=== PATIENT | female | born 1975 | race Caucasian/White ===

== ENCOUNTER → 2024-07-03 11:11 | Outpatient (REF) | payer BC, SELFPAY | LOC: WDC 11:11 | PROVIDERS: ATTENDING PHYSICIAN Physician Assistant Medical | DX: Z12.31 Encounter for screening mammogram for malignant neoplasm of breast (principal) | CPT/HCPCS: 77063; 77067 ==

== ENCOUNTER → 2024-07-11 08:33 | Outpatient (REF) | payer BC, SELFPAY | LOC: WDC 08:33 | PROVIDERS: ATTENDING PHYSICIAN Physician Assistant Medical | DX: R92.8 Other abnormal and inconclusive findings on diagnostic imaging of breast (principal) | CPT/HCPCS: 76642 ==

== ENCOUNTER → 2024-07-15 09:55 | Outpatient (REF) | payer BC, SELFPAY ==
--- NOTE | 2024-07-15 13:44 | OID.BR.INTR ---
OID Breast Navigator - Initial
- -
Date of Contact: 07/15/24
Met with patient. Patient given written information on navigator services available at [facility]. Will follow up as needed per protocol.
== END ==
LOC: WDC 09:55
PROVIDERS: ATTENDING PHYSICIAN Physician Assistant Medical
DX: N63.23 Unspecified lump in the left breast, lower outer quadrant (principal)
CPT/HCPCS: 88305; 19083; 88341; 88360; A4648

== ENCOUNTER → 2024-07-24 12:45 | Outpatient (REF) | payer BC, SELFPAY | LOC: WDC 12:45 | PROVIDERS: ATTENDING PHYSICIAN Surgery; FAMILY PHYSICIAN Physician Assistant Medical; REFERRING PHYSICIAN Student in an Organized Health Care Education/Training Program | DX: R92.30 Dense breasts, unspecified (principal) | CPT/HCPCS: 76641 ==

== ENCOUNTER → 2024-08-07 07:47 | Outpatient (REF) | payer BC, SELFPAY | LOC: WDC 07:47 | PROVIDERS: ATTENDING PHYSICIAN Student in an Organized Health Care Education/Training Program; FAMILY PHYSICIAN Physician Assistant Medical | DX: N63.41 Unspecified lump in right breast, subareolar (principal) | CPT/HCPCS: 88305; 19083; A4648 ==

== ENCOUNTER → 2024-10-25 08:24 | Outpatient (REF) | payer BC, SELFPAY | LOC: RCS 08:24 | PROVIDERS: ATTENDING PHYSICIAN Internal Medicine Hematology & Oncology; FAMILY PHYSICIAN Physician Assistant Medical | DX: C50.512 Malignant neoplasm of lower-outer quadrant of left female breast (principal); Z17.0 Estrogen receptor positive status [ER+] | CPT/HCPCS: 93306; 93356 ==

== ENCOUNTER 2024-11-11 12:54 | Outpatient (RCR) | payer BC, SELFPAY | END 2024-11-11 23:59 | disposition home or self-care (01) | LOC: RPT 12:54 | PROVIDERS: ATTENDING PHYSICIAN Radiology Radiation Oncology; FAMILY PHYSICIAN Internal Medicine | DX: C50.412 Malignant neoplasm of upper-outer quadrant of left female breast (principal); R53.0 Neoplastic (malignant) related fatigue; L90.5 Scar conditions and fibrosis of skin; Z17.0 Estrogen receptor positive status [ER+]; Z73.6 Limitation of activities due to disability; M62.81 Muscle weakness (generalized) | CPT/HCPCS: 97110; 97140; 97163; 97530 ==

== ENCOUNTER → 2024-12-04 15:14 | Outpatient (REF) | payer BC, SELFPAY | LOC: RCS 15:14 | PROVIDERS: ATTENDING PHYSICIAN Internal Medicine; FAMILY PHYSICIAN Physician Assistant Medical | DX: C50.919 Malignant neoplasm of unspecified site of unspecified female breast (principal); I10 Essential (primary) hypertension; T45.1X5A Adverse effect of antineoplastic and immunosuppressive drugs, initial encounter; R00.0 Tachycardia, unspecified | CPT/HCPCS: 93017 ==

== ENCOUNTER → 2024-12-10 08:23 | Outpatient (REF) | payer BC, SELFPAY | LOC: HWRCS 08:23 | PROVIDERS: ATTENDING PHYSICIAN Student in an Organized Health Care Education/Training Program; FAMILY PHYSICIAN Physician Assistant Medical | DX: I10 Essential (primary) hypertension (principal); R00.0 Tachycardia, unspecified; R07.89 Other chest pain; R94.39 Abnormal result of other cardiovascular function study | CPT/HCPCS: 78452; 93017; A9500 ==

== ENCOUNTER 2024-12-16 08:58 | Outpatient (RCR) | payer BC, SELFPAY | END 2024-12-16 23:59 | disposition home or self-care (01) | LOC: RPT 08:58 | PROVIDERS: ATTENDING PHYSICIAN Radiology Radiation Oncology; FAMILY PHYSICIAN Internal Medicine | DX: C50.412 Malignant neoplasm of upper-outer quadrant of left female breast (principal); R53.0 Neoplastic (malignant) related fatigue; L90.5 Scar conditions and fibrosis of skin; Z17.0 Estrogen receptor positive status [ER+]; Z73.6 Limitation of activities due to disability; M62.81 Muscle weakness (generalized) | CPT/HCPCS: 97110; 97140; 97530 ==

== ENCOUNTER 2025-01-14 18:56 | Outpatient (RCR) | payer BC, SELFPAY | END 2025-01-14 23:59 | disposition home or self-care (01) | LOC: RPT 18:56 | PROVIDERS: ATTENDING PHYSICIAN Radiology Radiation Oncology; FAMILY PHYSICIAN Internal Medicine | DX: C50.412 Malignant neoplasm of upper-outer quadrant of left female breast (principal); R53.0 Neoplastic (malignant) related fatigue; L90.5 Scar conditions and fibrosis of skin; Z17.0 Estrogen receptor positive status [ER+]; Z73.6 Limitation of activities due to disability; M62.81 Muscle weakness (generalized) | CPT/HCPCS: 97110; 97140; 97164; 97530 ==

== ENCOUNTER 2025-01-31 09:15 | Emergency (ER) | payer BC, SELFPAY ==
[2025-01-31 09:19] VITALS: BP 173/101
[2025-01-31 09:41] VITALS: BMI 25.6
--- NOTE | 2025-01-31 09:43 | ED.GENMED ---
History of Present Illness
General
Chief Complaint: Skin Problem
Source: patient
Exam Limitations: none
Time Seen by Provider: 01/31/25 09:25
Nursing documentation reviewed up to this point in time: agreed with
History of Present Illness
History of Present Illness:
see MDM
Past History
Past History
ED Past Medical History: Cancer (breast to lymph nodes)
ED Past Surgical History: Gynecological
Review of Systems
Review of Systems
Allergies reviewed?: Yes
All Other Systems: Not applicable
Phy Exam
Physical Exam
Physical Exam:
GENERAL: Alert , in no apparent distress, comfortable at rest
HEAD: NCAT
CV: 2+ DP PULSES B/L
NEUROLOGICAL: Alert and oriented, no focal neuro deficits, , 5/5 strength, sensation intact,
SKIN: Warm and dry,
MUSCULOSKELETAL: fluid filled blister in between right 4th/5th toes (on 4th toe); leaking clearish fluid; tender
slight swelling of the entire 4th toe
faint erythema R distal 4th MTP joint regoin (very subtle)
normla pulse
scaly skin to b/l plantar feet
PSYCH: Normal and appropriate interaction.
Course
Orders/Labs/Results
Orders:
Orders
01/31/25 10:46
Wound Culture [Wound/Abscess/Other Culture] Urgent
DAMARI Source: Toe
Specimen Description:
Date Specimen was Collected: 01/31/25
Time Specimen was Collected: 10:43
Vital Signs
Initial and Last Documented VS:
Initial Vital Signs
Pulse Resp BP Pulse Ox
95 16 173/101 98
01/31/25 09:19 01/31/25 09:19 01/31/25 09:19 01/31/25 09:19
Last Documented Vital Signs
Temp Pulse Resp BP Pulse Ox
36.8 C 80 16 137/83 100
01/31/25 09:40 01/31/25 10:46 01/31/25 09:19 01/31/25 10:46 01/31/25 10:46
Procedures
Incision/Drainage/Joint Aspiration
Right Lateral Toe:
Anethesia: ethyl chloride
Preparation: cleaned with Betadine
Type of procedure: incise
Nature of site: other (blister)
Description of abscess: less than 3cm
Loculations broken up: No
How much fluid was obtained?: small amount
Fluid description: clear
Treatment: left open for drainage
MDM/Problems Addressed
MDM/Problems Addressed:
Note:
CHIEF COMPLAINT(S)
Foot blisters with swelling and redness.
HISTORY OF PRESENT ILLNESS
The patient is a 49-year-old female receiving chemotherapy for breast cancer, currently presenting with a foot issue characterized by intermittent episodes of itching, blistering, and swelling at the site. The patient describes the condition as
recurrent over the past few years, with blisters that arise after scratching itchy areas. She reports that after using a sock to scratch, it irritated the skin leading to blister formation. Accompanying symptoms include redness and swelling of the
foot, without any reported fever or systemic symptoms. The patients chemotherapy regimen includes Taxol, with previous treatments consisting of another agent she refers to as the '[place],' identified as Doxorubicin. She also mentions her nails
becoming dry and her feet experiencing significant dryness since starting chemotherapy. The patient has used Aquaphor in the past for dryness and a prescribed steroid cream, which she applied sparingly.
ADDITIONAL HISTORY OBTAINED FROM SOURCES OTHER THAN THE PATIENT
According to the patient, her spouse initially suggested the possibility of athlete�s foot, a notion the patient disagrees with due to pain and burning sensations that accompany friction blisters from previous experiences.
EXTERNAL RECORDS REVIEWED
No external records have been reviewed at the moment. However, the plan includes discussing the case with faraz
and potentially taking photos for further evaluation.
CHRONIC MEDICAL CONDITIONS SIGNIFICANTLY AFFECTING CARE
The patient reports a history of breast cancer, hypertension, thyroid dysfunction, and she is currently undergoing chemotherapy.
SOCIAL DETERMINANTS AFFECTING HEALTH
The patient mentions previous instances where foot blisters were exacerbated by long walking tours and wearing inappropriate footwear. She also indicates some concerns about managing the dryness of her skin due to chemotherapy and using various
creams such as Aquaphor.
REVIEW OF SYSTEMS
- Skin: Recurrent foot blisters, redness, swelling, dryness.
- Musculoskeletal: Foot discomfort.
- Constitutional: No fever or chills reported.
- Extremities: Pain and itching in the affected foot area.
PHYSICAL EXAM
- Dermatological: The affected foot appears MINIMALL swollen with faint pink skin changes on dosral aspect around 4th MTP joint ; large blister approx 3 cm x 2 cm on the lateral 4th toe in betewen 4th and 5th toes; clear fluid underneath, draining
with expression
slightly tender palpation of the toe
Nursing notes reviewed and vital signs reviewed.
PROBLEM LIST
Acute:
- Foot blister with possible infection.
- Swelling and redness of the foot.
Chronic:
- Breast cancer.
- Hypertension.
- Thyroid dysfunction.
PLAN
1. Consider discussing possible fluid aspiration from the blister for culture to ascertain if bacterial infection is present.
2. Evaluate the appropriateness of antibiotic treatment due to the patient�s immunocompromised status from chemotherapy.
DIFFERENTIAL DIAGNOSIS
The Differential Diagnosis includes, in no particular order and is not limited to:
1. Dyshidrotic eczema
2. Bacterial infection
3. Fungal infection (such as athletes foot)
4. Friction blister
5. Contact dermatitis
6. Chemotherapy-induced rash
7. Autoimmune skin condition
8. Drug reaction
9. Impetigo
10. Cellulitis
i opened the blister with a 11 blade whlie using the pain ease spray and pt toelrate well
clear fluid drained
cultured
empiric abx doxy
return precautions
*Critical Care Note
Total Time (30-74mins, 75-104mins- exclusive of procedures): Not Applicable
ED Attending Note
-
Portions of this chart may have been created with voice recognition software.� Occasional wrong word or��sound alike� substitutions may have occurred due to the inherent limitations of voice recognition software.
Discharge Plan
Departure
Patient Disposition: Home (Routine Discharge)
Date of Disposition: 01/31/25
Time of Disposition: 10:35
Patient with high blood pressure during this ER visit?: Yes
Condition: Fair
Covid-19: Not Applicable
Discharge Problem:
Blister, Hypertension
Instructions: Wound Care (DC), BLOOD PRESSURE
Prescriptions:
New
doxycycline hyclate 100 mg capsule
100 mg PO BID Qty: 14 0RF
No Action
Vitamins
DHA
SYNTHROID
137 mcg PO
Referrals:
Chelsea Tam PA [Family Provider, Family Practice]
Activity Restrictions/Additional Instructions:
I opened your blister and drained the fluid which looked clear and not infected. We are going to empirically cover you with antibiotics with doxycycline twice a day. You can speak with your oncologist to make sure this does not interact with your
medications. Elevate your foot and stay off of it today if you can. Return for worsening redness, swelling, pain, fever or any concerns
Interventions
Interventions:
*Risk Screen - Suicide Last Done: 01/31/25 09:19
*General Assessment Last Done: 01/31/25 09:39
*Neglect/Abuse Screening Last Done: 01/31/25 09:19
*ED- Fall Risk Assessment Last Done: 01/31/25 09:39
*ED COVID-19 Vaccine History Last Done: 01/31/25 09:39
*Nursing Disposition Last Done: 01/31/25 11:04
ED-Skin Assessment Last Done: 01/31/25 09:50
Discharge Date and Time
Discharge Date/Time: 01/31/25 11:00
Print Language: LATVIAN
[2025-01-31 09:45] VITALS: BP 147/84
[2025-01-31 10:46] VITALS: BP 137/83
== END 2025-01-31 11:00 | disposition home or self-care (01) ==
LOC: EMR 09:15
PROVIDERS: EMERGENCY PHYSICIAN Emergency Medicine; FAMILY PHYSICIAN Physician Assistant Medical
DX: S90.424A Blister (nonthermal), right lesser toe(s), initial encounter (principal); X58.XXXA Exposure to other specified factors, initial encounter; I10 Essential (primary) hypertension; Z79.899 Other long term (current) drug therapy; D84.821 Immunodeficiency due to drugs
CPT/HCPCS: 99283; 10140; 87070; 87205

== ENCOUNTER 2025-02-14 14:07 | Outpatient (RCR) | payer BC, SELFPAY | END 2025-02-14 23:59 | disposition home or self-care (01) | LOC: RPT 14:07 | PROVIDERS: ATTENDING PHYSICIAN Radiology Radiation Oncology; FAMILY PHYSICIAN Internal Medicine | DX: C50.412 Malignant neoplasm of upper-outer quadrant of left female breast (principal); R53.0 Neoplastic (malignant) related fatigue; L90.5 Scar conditions and fibrosis of skin; Z17.0 Estrogen receptor positive status [ER+]; Z73.6 Limitation of activities due to disability; M62.81 Muscle weakness (generalized) | CPT/HCPCS: 97110; 97530 ==

== ENCOUNTER 2025-03-14 15:00 | Outpatient (RCR) | payer BC, SELFPAY | END 2025-03-14 23:59 | disposition home or self-care (01) | LOC: RPT 15:00 | PROVIDERS: ATTENDING PHYSICIAN Radiology Radiation Oncology; FAMILY PHYSICIAN Internal Medicine | DX: C50.412 Malignant neoplasm of upper-outer quadrant of left female breast (principal); R53.0 Neoplastic (malignant) related fatigue; L90.5 Scar conditions and fibrosis of skin; Z17.0 Estrogen receptor positive status [ER+]; Z73.6 Limitation of activities due to disability; M62.81 Muscle weakness (generalized) | CPT/HCPCS: 97110; 97530 ==

== ENCOUNTER → 2025-03-31 08:56 | Outpatient (REF) | payer BC, SELFPAY | LOC: RCS 08:56 | PROVIDERS: ATTENDING PHYSICIAN Internal Medicine; FAMILY PHYSICIAN Physician Assistant Medical | DX: C50.919 Malignant neoplasm of unspecified site of unspecified female breast (principal); I10 Essential (primary) hypertension; T45.1X5A Adverse effect of antineoplastic and immunosuppressive drugs, initial encounter | CPT/HCPCS: 93306; 93356 ==

== ENCOUNTER → 2025-04-08 10:13 | Outpatient (REF) | payer BC, SELFPAY ==
[2025-04-08 11:41] LABS: TSH < 0.02 uIU/ml (0.47-4.68)
== END ==
LOC: REG 10:13
PROVIDERS: ATTENDING PHYSICIAN Physician Assistant; FAMILY PHYSICIAN Physician Assistant Medical
DX: E03.9 Hypothyroidism, unspecified (principal)
CPT/HCPCS: 36415; 84439; 84443

== ENCOUNTER 2025-04-14 06:41 | Outpatient (RCR) | payer BC, SELFPAY | END 2025-04-14 23:59 | disposition home or self-care (01) | LOC: RPT 06:41 | PROVIDERS: ATTENDING PHYSICIAN Radiology Radiation Oncology; FAMILY PHYSICIAN Internal Medicine | DX: C50.412 Malignant neoplasm of upper-outer quadrant of left female breast (principal); R53.0 Neoplastic (malignant) related fatigue; L90.5 Scar conditions and fibrosis of skin; Z17.0 Estrogen receptor positive status [ER+]; Z73.6 Limitation of activities due to disability; M62.81 Muscle weakness (generalized) | CPT/HCPCS: 97110; 97530 ==

== ENCOUNTER 2025-05-20 11:12 | Outpatient (RCR) | payer BC, SELFPAY | END 2025-05-20 23:59 | disposition home or self-care (01) | LOC: RPT 11:12 | PROVIDERS: ATTENDING PHYSICIAN Radiology Radiation Oncology; FAMILY PHYSICIAN Internal Medicine | DX: C50.412 Malignant neoplasm of upper-outer quadrant of left female breast (principal); R53.0 Neoplastic (malignant) related fatigue; L90.5 Scar conditions and fibrosis of skin; Z17.0 Estrogen receptor positive status [ER+]; Z73.6 Limitation of activities due to disability; M62.81 Muscle weakness (generalized) | CPT/HCPCS: 97112; 97530 ==

== ENCOUNTER 2025-06-19 09:17 | Outpatient (RCR) | payer BC, SELFPAY | END 2025-06-19 23:59 | disposition home or self-care (01) | LOC: RPT 09:17 | PROVIDERS: ATTENDING PHYSICIAN Radiology Radiation Oncology; FAMILY PHYSICIAN Internal Medicine | DX: C50.412 Malignant neoplasm of upper-outer quadrant of left female breast (principal); R53.0 Neoplastic (malignant) related fatigue; L90.5 Scar conditions and fibrosis of skin; Z17.0 Estrogen receptor positive status [ER+]; Z73.6 Limitation of activities due to disability; M62.81 Muscle weakness (generalized) | CPT/HCPCS: 97110; 97530 ==

== ENCOUNTER 2025-07-25 07:05 | Outpatient (RCR) | payer BC, SELFPAY | END 2025-07-25 23:59 | disposition home or self-care (01) | LOC: RPT 07:05 | PROVIDERS: ATTENDING PHYSICIAN Radiology Radiation Oncology; FAMILY PHYSICIAN Internal Medicine | DX: C50.412 Malignant neoplasm of upper-outer quadrant of left female breast (principal); R53.0 Neoplastic (malignant) related fatigue; L90.5 Scar conditions and fibrosis of skin; Z17.0 Estrogen receptor positive status [ER+]; Z73.6 Limitation of activities due to disability; M62.81 Muscle weakness (generalized) | CPT/HCPCS: 97110; 97530 ==